=== PATIENT | male | born 1995 | race Caucasian/White ===

== ENCOUNTER 2025-01-15 13:30 | Inpatient (IN) | payer MEDICAID, OTHER ==
--- NOTE | 2025-01-15 14:03 | ED ---
General Adult HPI - General Chief complaint: Psychiatric Symptoms Stated complaint: suicidal ideation Time Seen by Provider: 01/15/25 13:43 Source: patient, family, EMS, RN notes reviewed Mode of arrival: EMS Limitations: no limitations - History of Present Illness Initial comments: Patient is a 29-year-old male present to the emergency department with concerns with depression and suicidal thoughts. Patient has been depressed for many years. Patient has multiple stressors. Patient recently lost his residence and has been sleeping in the car for the last 2 days. Patient has thoughts of self- harm without plan. No homicidal thoughts. No hallucinations. No alcohol or street drug use other than marijuana. Patient has not been sleeping well - Related Data Home Medications Medication Instructions Recorded Confirmed No Known Home Medications 01/15/25 01/15/25 Allergies Allergy/AdvReac Type Severity Reaction Status Date / Time No Known Allergies Allergy Verified 01/15/25 16:12 Review of Systems ROS Statement: Those systems with pertinent positive or pertinent negative responses have been documented in the HPI. ROS Other: All systems not noted in ROS Statement are negative. Constitutional: Denies: fever Eyes: Denies: eye pain ENT: Denies: ear pain Respiratory: Denies: cough Cardiovascular: Denies: chest pain Endocrine: Denies: fatigue Gastrointestinal: Denies: abdominal pain Psychiatric: Reports: as per HPI, anxiety, depression, suicidal thoughts Past Medical History Past Medical History: No Reported History History of Any Multi-Drug Resistant Organisms: None Reported Additional Past Surgical History / Comment(s): rods in left leg in two spots. Past Psychological History: No Psychological Hx Reported Smoking Status: Vaper Past Alcohol Use History: None Reported Past Drug Use History: Marijuana General Exam Limitations: no limitations General appearance: alert, in no apparent distress Head exam: Present: atraumatic Eye exam: Present: normal appearance Neck exam: Present: normal inspection Respiratory exam: Present: normal lung sounds bilaterally Cardiovascular Exam: Present: regular rate, normal rhythm GI/Abdominal exam: Present: soft. Absent: tenderness Extremities exam: Present: normal inspection Neurological exam: Present: alert Psychiatric exam: Present: normal affect, normal mood Skin exam: Present: normal color Course Vital Signs 01/15/25 13:44 Temperature 97.6 F Pulse Rate 85 Respiratory 18 Rate Blood Pressure 135/82 O2 Sat by Pulse 98 Oximetry Medical Decision Making - Medical Decision Making Was pt. sent in by a medical professional or institution (Dr., PA, PATIENT SERVICE REPRESENTATIVE, urgent care, hospital, or [place] [facility] [place] facility...) When possible be specific @ -No Did you speak to anyone other than the patient for history (EMS, parent, family, police, friend...)? What history was obtained from this source @ - is present helps provide history of recently being kicked out of their residence Did you review nursing and triage notes (agree or disagree)? Why? @ -I reviewed and agree with nursing and triage notes Were old charts reviewed (outside hosp., previous admission, EMS record, old EKG, old radiological studies, urgent care reports/EKG's, [place] health care facility records)? Report findings @ -No old charts were reviewed Differential Diagnosis (chest pain, altered mental status, abdominal pain women, abdominal pain men, vaginal bleeding, weakness, fever, dyspnea, syncope, headache, dizziness, GI bleed, back pain, seizure, CVA, palpatations, mental health, musculoskeletal)? @ -Differential Mental Health Depression, anxiety, bipolar, psychosis, schizophrenia, borderline personality, situational depression, adjustment disorder, behavioral disorder, brain tumor, malingering, substance abuse, encephalopathy, medication reaction, dementia, hypothyroidism, degenerative neurologic disorder, lupus.... This is not meant to be all-inclusive list EKG interpreted by me (3pts min.). @ -As above X-rays interpreted by me (1pt min.). @ -None done CT interpreted by me (1pt min.). @ -CT scan of the brain without acute abnormality U/S interpreted by me (1pt. min.). @ -None done What testing was considered but not performed or refused? (CT, X-rays, U/S, labs)? Why? @ -None What meds were considered but not given or refused? Why? @ -None Did you discuss the management of the patient with other professionals (professionals i.e. MARY Rausch, PATIENT SERVICE REPRESENTATIVE, lab, RT, psych nurse, social media campaign manager, medical office receptionist assistant, teacher, chief administrative officer, home health care case manager)? Give summary @ -Case was discussed with mental health social media campaign manager with plans for admission. There was request for CT scan by the psychiatrist Was smoking cessation discussed for >3mins.? @ -No Was critical care preformed (if so, how long)? @ -No Were there social determinants of health that impacted care today? How? (Homelessness, low income, unemployed, alcoholism, drug addiction, transportation, low edu. Level, literacy, decrease access to med. care, residential, rehab)? @ -No Was there de-escalation of care discussed even if they declined (Discuss DNR or withdrawal of care, Hospice)? DNR status @ -No What co-morbidities impacted this encounter? (DM, HTN, Smoking, COPD, CAD, Cancer, CVA, ARF, Chemo, Hep., AIDS, mental health diagnosis, sleep apnea, morbid obesity)? @ -None Was patient admitted / discharged? Hospital course, mention meds given and route, prescriptions, significant lab abnormalities, going to OR and other pertinent info. @ -Patient presents with longstanding depression, worsened recently with suicidal ideation. Patient seen by mental health services with plans for admission. Undiagnosed new problem with uncertain prognosis? @ -No Drug Therapy requiring intensive monitoring for toxicity (Heparin, Nitro, Insulin, Cardizem)? @ -No Were any procedures done? @ -No Diagnosis/symptom? @ -Depression, suicidal ideation Acute, or Chronic, or Acute on Chronic? @ -Acute, acute Uncomplicated (without systemic symptoms) or Complicated (systemic symptoms)? @ -Default Side effects of treatment? @ -No Exacerbation, Progression, or Severe Exacerbation? @ -No Poses a threat to life or bodily function? How? (Chest pain, [place], [place], pneumonia, PE, COPD, DKA, ARF, appy, cholecystitis, CVA, Diverticulitis, Homicidal, Suicidal, threat to staff... and all critical care pts) @ -No - Lab Data Lab Results 01/15/25 Range/Units 15:31 Urine Opiates Screen Not Detected (NotDetected) Ur Oxycodone Screen Not Detected (NotDetected) Urine Methadone Screen Not Detected (NotDetected) Ur Barbiturates Screen Not Detected (NotDetected) U Tricyclic Antidepress Not Detected (NotDetected) Ur Phencyclidine Scrn Not Detected (NotDetected) Ur Amphetamines Screen Not Detected (NotDetected) U Methamphetamines Scrn Not Detected (NotDetected) U Benzodiazepines Scrn Not Detected (NotDetected) Urine Cocaine Screen Not Detected (NotDetected) U Marijuana (THC) Screen Detected H (NotDetected) Disposition Clinical Impression: Depression, Suicidal ideation Disposition: TRANSFER TO PSYCH HOSP/UNIT Is patient prescribed a controlled substance at d/c from ED?: No Referrals: None,Stated [Primary Care Provider] - 1-2 days Time of Disposition: 16:33
[2025-01-15 16:23] LABS: Amphetamine Screen,Urine Not Detected (NotDetected); Barbiturate Screen,Urine Not Detected (NotDetected); Benzodiazepines Screen,Urine Not Detected (NotDetected); Cocaine Screen,Urine Not Detected (NotDetected); Methadone Screen, Urine Not Detected (NotDetected); Opiate Screen,Urine Not Detected (NotDetected); Oxycodone Screen, Urine Not Detected (NotDetected); Phencyclidine Screen,Urine Not Detected (NotDetected); Tricyclic Antidepressant,Urine Not Detected (NotDetected); Urn Cannabinoid Scrn Detected (NotDetected)
--- NOTE | 2025-01-15 16:30 | CT ---
EXAMINATION TYPE: CT brain wo con DATE OF EXAM: 01/15/2025 COMPARISON: None CLINICAL INDICATION: Male, 29 years old with history of new onset psychiatric diagnosis; PHH, new ons et psychiatric diagnosis CT DLP: 1239.4 mGycm Automated exposure control for dose reduction was used. Findings: The ventricles, basal cisterns and sulci over the convexities are within normal limits and there is n o mass effect or shift of midline structures. No abnormal density is seen throughout the brain parenchyma and there is no acute intra or extra-axia l hemorrhage. The posterior fossa including the brainstem, fourth ventricle and cerebellar pontine angles appear no rmal. Intraorbital contents appear normal and symmetric. There is mild chronic pansinusitis. The mastoid air cells are well aerated. The calvarium is intact. IMPRESSION: 1. No acute bleed or mass effect. 2. Mild chronic pansinusitis. [facility], , 01/15/2025 4:27 PM
[2025-01-15] MEDS ORDERED: MAG HYDROX/AL HYDROX/SIMETH 355 ML BOTTLE PO PRN (17:12)
[2025-01-15] MEDS ORDERED: MAGNESIUM HYDROXIDE 2,400 MG/30 ML CUP PO PRN (17:12)
[2025-01-15] MEDS ORDERED: haloperidoL 5 MG TAB PO PRN (17:13)
[2025-01-15] MEDS ORDERED: LORazepam 2 MG/ML INJ IM PRN (17:13)
[2025-01-15] MEDS ORDERED: HALOPERIDOL LACTATE 5 MG/ML 1 ML VIAL IM PRN (17:13)
[2025-01-15] MEDS ORDERED: traZODone HCL 50 MG TAB PO PRN (17:13)
[2025-01-16 04:59] LABS: Appearance,Urine Clear (Clear); Bilirubin,Urine Negative (Negative); Blood,Urine Negative (Negative); Color,Urine Colorless; Glucose,Urine (UA) Negative (Negative); Ketones,Urine Negative (Negative); Leukocyte Esterase,Urine Negative (Negative); Nitrite,Urine Negative (Negative); Protein,Urine Negative (Negative); Specific Gravity,Urine 1.016 (1.001-1.035); Urobilinogen,Urine <2.0 mg/dL (<2.0)
[2025-01-16] MEDS: NICOTINE 14MG/24HR PATCH TRANSDERM SCH (05:11)
[2025-01-16 08:21] LABS: Basophils # (A) 0.06 10*3/uL (0.00-0.10); Basophils % (A) 0.6 %; Eosinophils # (A) 0.26 10*3/uL (0.04-0.35); Eosinophils % (A) 2.4 %; HGB 16.9 g/dL (13.0-17.0); Lymphocytes # (A) 2.31 10*3/uL (0.90-5.00); Lymphocytes % (A) 21.5 %; MCH 28.9 pg (27.0-32.0); MCHC 32.5 g/dL (32.0-37.0); Mean Platelet Volume 11.1 fL (9.5-12.2); Monocytes % (A) 7.5 %; Neutrophils # (A) 7.25 10*3/uL (1.80-7.70); Neutrophils % (A) 67.6 %; Platelet Count 349 10*3/uL (140-440); RBC 5.84 10*6/uL (4.40-5.60); RDW 13.5 % (11.5-14.5); WBC 10.72 10*3/uL (4.50-10.00)
[2025-01-16 08:54] LABS: ALT 34 U/L (4-49); AST 25 U/L (17-59); African American GFR (CKD) >90 (>60 ml/min/1.73 sqM); Albumin 4.7 g/dL (3.5-5.0); Alkaline Phosphatase 87 U/L (38-126); Anion Gap 9 mmol/L; Blood Urea Nitrogen 11 mg/dL (9-20); Calcium 10.4 mg/dL (8.4-10.2); Carbon Dioxide 30 mmol/L (22-30); Chloride 103 mmol/L (98-107); Glucose 123 mg/dL (74-99); Non-African American GFR(CKD) >90 (>60 ml/min/1.73 sqM); Potassium 5.1 mmol/L (3.5-5.1); Sodium 142 mmol/L (137-145); Total Bilirubin 0.9 mg/dL (0.2-1.3); Total Protein 8.1 g/dL (6.3-8.2)
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
[2025-01-16] MEDS: ARIPiprazole 10 MG TAB PO SCH (16:12)
--- NOTE | 2025-01-16 21:43 | P.MDCNMH ---
<Jayden Mijares - Last Filed: 01/16/25 21:43> History of Present Illness H&P Date: 01/15/25 Patient is a 29year old male with no significant past medical history, admitted to the hospital for depression and suicidal ideation, seen today in medical consultation for medical management. Patient initially presented to the ED with concerns of depression suicidal thoughts. The patient has been depressed for many years and has multiple stressors. He also recently lost his residence and had been sleeping in the car for couple of days. He had thoughts of self-harm without a plan. Patient is being treated with Haldol, Ativan, Desyrel. Patient reports having palpitations intermittently. Denies being diagnosed with any arrhythmias. Denies associated symptoms of chest pain, dizziness, nausea. Patient denies taking any medications at home for any medical conditions. At the time of this interview patient denies fever, chills, shortness of breath, cough, chest pain, palpitations, abdominal pain, nausea, vomiting, hematuria, dysuria, hematochezia, melena, headache, slurred speech, numbness, tingling, dizziness, lightheadedness, blurred vision, double vision. He does mention that he needs to start taking better care of himself. Vitals T 97.6 F, OR 92 bpm, RR 18, BP 149/92, oxygen saturation 98 % on room air Brain CT shows no acute bleed or mass effect, mild chronic pansinusitis Urine toxicology positive for THC SARS-CoV-2 is negative Review of systems: Pertinent positives and negatives as discussed in HPI, a complete review of systems was performed and all other systems are negative. Physical examination: Vital signs reviewed General: nontoxic, no distress, appears at stated age Derm: warm, dry, intact Head: atraumatic, normocephalic, symmetric Cardiovascular: S1 S2 reg, no murmur Lungs: CTA bilateral, no rhonchi, no rales, no accessory muscle use Abdominal: soft, non-tender to palpation Extremities: No cyanosis, clubbing, or pedal edema. Neuro: Alert, Oriented, Gross neurological examination did not reveal any focal deficits. Assessment/Plan: Patient is a 29year old male with no significant past medical history, admitted to the hospital for depression and suicidal ideation, seen today in medical consultation for medical management. #. Nicotine dependence Continue Nicotine patch #. Constipation Continue Milk of magnesia #. GI upset Continue Maalox 30 ml PO Q4HR PRN #. Depression #. Suicidal ideation Patient receiving Haldol, Ativan, Desyrel per primary admitting team Continue Acetaminophen PRN and Ibuprofen PRN for pain management. Monitor vital signs Monitor CBC Monitor CMP Dictation was produced using [employer] dictation software. please excuse any grammatical, word or spelling errors. Jayden Mijares MD PGY-1 IM Past Medical History Past Medical History: No Reported History History of Any Multi-Drug Resistant Organisms: None Reported Additional Past Surgical History / Comment(s): rods in left leg in two spots. Past Anesthesia/Blood Transfusion Reactions: No Reported Reaction Past Psychological History: No Psychological Hx Reported Smoking Status: Vaper Past Alcohol Use History: None Reported Past Drug Use History: Marijuana Medications and Allergies Home Medications Medication Instructions Recorded Confirmed Type No Known Home Medications 01/15/25 01/15/25 History Allergies Allergy/AdvReac Type Severity Reaction Status Date / Time No Known Allergies Allergy Verified 01/15/25 16:12 Physical Exam Vitals: Vital Signs Temp Pulse Pulse Resp BP BP Pulse Ox 01/15/25 18:55 97.6 F 92 18 149/92 98 01/15/25 13:44 97.6 F 85 18 135/82 98 Intake and Output 01/15/25 01/15/25 01/15/25 06:59 14:59 22:59 Other: Weight 131.542 kg 135.7 kg Cranial Nerve Examination - Cranial Nerves Cranial Nerve I- Olfactory: Intact Cranial Nerve II- Optic: Intact Cranial Nerve III- Oculomotor: Intact Cranial Nerve IV- Trochlear: Intact Cranial Nerve V- Trigeminal: Intact Cranial Nerve - Abducens: Intact Cranial Nerve VII- Facial: Intact Cranial Nerve VIII- Auditory: Intact Cranial Nerve IX- Glossopharyngeal: Intact Cranial Nerve X- Vagus: Intact Cranial Nerve XI- Accessory: Intact Cranial Nerve XII- Hypoglossal: Intact Results CBC & Chem 7: 01/16/25 07:54 01/16/25 07:54 Labs: Abnormal Lab Results - Last 24 Hours (Table) 01/15/25 Range/Units 15:31 U Marijuana (THC) Screen Detected H (NotDetected) <Renee Vidal - Last Filed: 01/18/25 06:25> History of Present Illness I Discussed the case with the resident and agree with the resident's findings I edited the assessment and plan as necessary as documented in the resident's note. Physical Exam Vitals: Vital Signs Temp Pulse BP Pulse Ox 01/17/25 09:00 97.6 F 139 H 138/89 98 Cranial Nerve Examination - Cranial Nerves Cranial Nerve II- Optic: Intact Cranial Nerve III- Oculomotor: Intact Cranial Nerve IV- Trochlear: Intact Cranial Nerve V- Trigeminal: Intact Cranial Nerve - Abducens: Intact Cranial Nerve VII- Facial: Intact Cranial Nerve VIII- Auditory: Intact Cranial Nerve IX- Glossopharyngeal: Intact Cranial Nerve X- Vagus: Intact Cranial Nerve XI- Accessory: Intact Cranial Nerve XII- Hypoglossal: Intact Results CBC & Chem 7: 01/16/25 07:54 01/16/25 07:54
--- NOTE | 2025-01-17 12:07 | P.PN ---
Progress Note - Text Progress Note Date: 01/17/25 Interval History: Patient was seen wandering the hallways and was directable and agreeable to sp leeleek with auto service writer in the room. Patient reports being fearful due to the acuity of the unit, requesting to be discharged. He was redirectable, stated he slept "too good" and that he spoke to his who plans on visiting him over the weekend. Patient continues to be dramatic, some mood lability and continues to express some delusions described as sex traffickers targeting him however they have been locked up but this has been ongoing for 8 years. He inquired if auto service writer looked into UA given his previous O experience. At this time patient denies any suicidal or homicidal ideations, intent or plan. Patient denies any auditory, visual hallucinations. Patient denies any side effects from the medications and has been compliant with meds. Mental Status Exam: General Appearance: Patient appears to be stated age is alert, directable, and cooperative. He is overweight Behavior: Patient is calmly seated without any agitated behavior. Dramatic behavior at times Speech: Patient's speech is fluent and nonpressured. Mood/Affect: Mood is improving mildly, affect is congruent and labile. Suicidality/Homicidality: Patient denies having any suicidal or homicidal ideation intent or plan. Perceptions: Patient denies any visual hallucinations and denies any auditory hallucinations Though content/process: There is evidence of delusions, disorganization has improved Memory and concentration: AOX3, grossly intact for the purposes of this session Judgment and insight: Improving mildly Assessment Schizophrenia Adjustment disorder with depressed mood Cannabis use disorder History of polysubstance use disorder Rule out cluster A traits Plan: -Patient continues to meet criteria for inpatient psychiatric admission for symptom stabilization and safety. Patient has signed adult voluntary form and medication consent and was placed in patient's chart. -Medications: Increase Abilify to 15 mg daily tomorrow for psychosis -When necessary Ativan and Haldol for agitation/aggression. -Labs: A1c, lipid panel, TSH WNL -SW on board for discharge planning. Encouraged the patient to participate in milieu.
[2025-01-18] MEDS: ARIPiprazole 15 MG TAB PO SCH (11:04)
--- NOTE | 2025-01-18 11:23 | P.PN ---
Subjective Progress Note Date: 01/18/25 Principal diagnosis: Schizophrenia Patient was seen wandering the hallways and was directable and agreeable to speak with underwriter solicitation director in the room. Patient reports being fearful due to the acuity of the unit. He was redirectable, stated he slept "too good". Patient continues to be dramatic, some mood lability and continues to express some delusions described seeing UFO s and predicting the the government would say. He inquired if underwriter solicitation director looked into UA given his previous UFO experience. At this time patient denies any suicidal or homicidal ideations, intent or plan. Patient denies any auditory, visual hallucinations. Patient denies any side effects from the medications and has been compliant with meds. Mental Status Exam:"I might have delusions but I don't act on them. His social boundaries are poor and stands much too close but is not threatening. General Appearance: Patient appears to be stated age is alert, directable, and cooperative. He is overweight Behavior: Patient is calmly seated without any agitated behavior. Dramatic behavior at times Speech: Patient's speech is fluent but pressured with some flight of ideas. Mood/Affect: Mood is improving mildly, affect is congruent and labile. Suicidality/Homicidality: Patient denies having any suicidal or homicidal ideation intent or plan. Perceptions: Patient denies any visual hallucinations and denies any auditory hallucinations Though content/process: There is evidence of delusions, disorganization has improved Memory and concentration: AOX3, grossly intact for the purposes of this session Judgment and insight: Improving mildly Assessment Schizophrenia Adjustment disorder with depressed mood Cannabis use disorder History of polysubstance use disorder Rule out cluster A traits Plan:We just increased his Abilify so need to give it some time to kick in. -Patient continues to meet criteria for inpatient psychiatric admission for symptom stabilization and safety. Patient has signed adult voluntary form and medication consent and was placed in patient's chart. -Medications: Increase Abilify to 15 mg daily tomorrow for psychosis -When necessary Ativan and Haldol for agitation/aggression. -Labs: A1c, lipid panel, TSH WNL -SW on board for discharge planning. Encouraged the patient to participate in milieu. Objective - Vital Signs Vital signs: Vital Signs Temp 97.6 F 01/17/25 09:00 Pulse 139 H 01/17/25 09:00 Resp 18 01/16/25 09:00 BP 138/89 01/17/25 09:00 Pulse Ox 98 01/17/25 09:00 FiO2 - Labs CBC & Chem 7: 01/16/25 07:54 01/16/25 07:54
--- NOTE | 2025-01-19 12:37 | P.PN ---
Subjective Progress Note Date: 01/19/25 Principal diagnosis: Schizophrenia Patient was taking a nap but was willing to speak with headline writer in the room. Patient says he is not anxious today he was redirectable, stated he slept "too good". Patient continues to be dramatic he sat up in was willing to talk with slight pressure and rambling. At this time patient denies any suicidal or homicidal ideations, intent or plan. Patient denies any auditory, visual hallucinations. Patient denies any side effects from the medications and has been compliant with meds. Mental Status Exam: The patient is disheveled with minimal self-care General Appearance: Patient appears to be stated age is alert, directable, and cooperative. He is overweight Behavior: Patient is calmly seated without any agitated behavior. Dramatic beh avior at times Speech: Patient's speech is fluent but pressured with some flight of ideas. Mood/Affect: Mood is improving mildly, affect is congruent and labile. Suicidality/Homicidality: Patient denies having any suicidal or homicidal ideation intent or plan. Perceptions: Patient denies any visual hallucinations and denies any auditory hallucinations Though content/process: There is evidence of delusions, disorganization has improved Memory and concentration: AOX3, grossly intact for the purposes of this session Judgment and insight: Improving mildly Assessment his thinking is still pretty loose Schizophrenia Adjustment disorder with depressed mood Cannabis use disorder History of polysubstance use disorder Rule out cluster A traits Plan:We just increased his Abilify so need to give it some time to kick in. -Patient continues to meet criteria for inpatient psychiatric admission for symptom stabilization and safety. Patient has signed adult voluntary form and medication consent and was placed in patient's chart. -Medications: Increase Abilify to 15 mg daily tomorrow for psychosis -When necessary Ativan and Haldol for agitation/aggression. -Labs: A1c, lipid panel, TSH WNL -SW on board for discharge planning. Encouraged the patient to participate in milieu. Objective - Vital Signs Vital signs: Vital Signs Temp 98.2 F 01/19/25 09:00 Pulse 93 01/19/25 09:00 Resp 16 01/19/25 09:00 BP 125/86 01/19/25 09:00 Pulse Ox 100 01/19/25 09:00 FiO2 Intake & Output 01/18/25 01/19/25 01/19/25 18:59 06:59 18:59 Weight 132.5 kg - Labs CBC & Chem 7: 01/16/25 07:54 01/16/25 07:54
[2025-01-20] MEDS: ACETAMINOPHEN TAB 325 MG TAB PO PRN (03:56)
[2025-01-20] MEDS: LORazepam 1 MG TAB PO PRN (08:27)
[2025-01-20] MEDS: ARIPiprazole 5 MG TAB PO ONE (10:23)
--- NOTE | 2025-01-20 13:20 | P.PN ---
Progress Note - Text Progress Note Date: 01/20/25 Interval History: Patient was seen wandering the hallways and was directable and agreeable to carl doran with procedure writer in the office. Patient was fixated on being discharged due to the environment being triggering for him. Patient did appear to be less fixated on delusions, more goal oriented today however did display poor hygiene and grooming. Patient was agreeable with procedure writer speaking to his [employer] for collateral to which she states having concerns with patient returning home with his father as this was part of the trigger that ultimately led him here in the hospital. When asked about patient's mental health concerns, she states patient did appear irritable with her and is focusing on his family instead of himself which is concerning for her. She states she is trying to find an alternative place within the stay as they have been homeless and she does not wish to live with patient's father. Discussed with patient to which he states his father has a safe place for him to return to, states that his has concerns however he expressed none. He was adamant that he will follow-up with his outpatient appointments and take his meds as prescribed. At this time patient denies any suicidal or homicidal ideations, intent or plan. Patient denies any auditory, visual hallucinations and denies any paranoia or delusions. Patient denies any side effects from the medications and has been compliant with meds. Mental Status Exam: General Appearance: Patient appears to be stated age is alert, directable, and cooperative. He has poor grooming and hygiene Behavior: Patient is calmly seated without any agitated behavior. Speech: Patient's speech is fluent and nonpressured. Mood/Affect: Mood is improving mildly, affect is congruent and constricted. Suicidality/Homicidality: Patient denies having any suicidal or homicidal ideation intent or plan. Perceptions: Patient denies any visual hallucinations and denies any auditory hallucinations Though content/process: There is no evidence of any overt delusional thought content and thought process is linear and goal-directed. Disorganization is minimal Memory and concentration: AOX3, grossly intact for the purposes of this session Judgment and insight: Improving mildly Assessment Schizophrenia Adjustment disorder with depressed mood Cannabis use disorder History of polysubstance use disorder Plan: -Patient continues to meet criteria for inpatient psychiatric admission for symptom stabilization and safety. Patient has signed adult voluntary form and medication consent and was placed in patient's chart. -Medications: Increase Abilify to 20 mg daily today for psychosis -When necessary Ativan and Haldol for agitation/aggression. -Labs: TSH, lipid panel and A1c all WNL -SW on board for discharge planning. Encouraged the patient to participate in milieu. Anticipate discharge tomorrow, patient to return with his father
[2025-01-20] MEDS: IBUPROFEN 600 MG TAB PO PRN (17:30)
[2025-01-21 08:18] VITALS: BP 128/78; PULSE 77; RESP 18; TEMP 96.1
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
== END 2025-01-21 12:58 | disposition home or self-care (01) | DRG 750 ==
LOC: EC 13:30 → 3MHU 17:10
PROVIDERS: ADMIT Psychiatry & Neurology Psychiatry; ATTEND Psychiatry & Neurology Psychiatry
DX: F20.9 Schizophrenia, unspecified (principal); F41.9 Anxiety disorder, unspecified; F43.21 Adjustment disorder with depressed mood; G89.29 Other chronic pain; K59.00 Constipation, unspecified; R45.851 Suicidal ideations; F17.290 Nicotine dependence, other tobacco product, uncomplicated; F19.11 Other psychoactive substance abuse, in remission; F12.10 Cannabis abuse, uncomplicated; Z71.51 Drug abuse counseling and surveillance of drug abuser; Z71.89 Other specified counseling; Z59.02 Unsheltered homelessness; Z79.899 Other long term (current) drug therapy; Z87.828 Personal history of other (healed) physical injury and trauma; Z91.52 Personal history of nonsuicidal self-harm
CPT/HCPCS: 70450; 80053; 80306; 81003; 82075; 83036; 84443; 85025; 87635; 99285

== ENCOUNTER 2025-04-03 15:45 | Inpatient (IN) | payer MEDICAID, OTHER ==
--- NOTE | 2025-04-03 17:08 | ED ---
Psych HPI - General Chief Complaint: Psychiatric Symptoms Stated Complaint: Mental Health Eval Time Seen by Provider: 04/03/25 16:02 Source: patient, family, RN notes reviewed Mode of arrival: ambulatory Limitations: no limitations - History of Present Illness Initial Comments: This is a calm and cooperative 30-year-old male presenting for SI x 6 months. Patient denies current plan or HI. Endorses hearing "dad calling him names" this morning and occasional random screams but denies visual hallucinations. States he lives with his father but is hearing the voice in his head. Patient states he is taking his psychiatric medication as prescribed. Patient states he has a [facility] sports attorney and states he is not attending therapy at this time. States symptoms have worsened today. Endorses being admitted due to mental health in December 2024. Patient will be self admitted MD Complaint: suicidal ideation Onset/Timin -: month(s) Associated Psychiatric Symptoms: depression, suicidal ideation, auditory hallucinations History of same: Yes Quality: constant, getting worse Associated Symptoms: denies other symptoms Treatments Prior to Arrival: none If Self Harm: admits thoughts of self harm - Related Data Home Medications Medication Instructions Recorded Confirmed Cariprazine HCl [Vraylar] 1.5 mg PO DAILY 04/03/25 04/03/25 Levomefolate Calcium 15 mg PO DAILY 04/03/25 04/03/25 [l-Methylfolate Calcium] Allergies Allergy/AdvReac Type Severity Reaction Status Date / Time No Known Allergies Allergy Verified 04/03/25 17:49 Review of Systems ROS Statement: Those systems with pertinent positive or pertinent negative responses have been documented in the HPI. ROS Other: All systems not noted in ROS Statement are negative. Past Medical History Past Medical History: No Reported History History of Any Multi-Drug Resistant Organisms: None Reported Additional Past Surgical History / Comment(s): rods in left leg in two spots. Past Anesthesia/Blood Transfusion Reactions: No Reported Reaction Past Psychological History: No Psychological Hx Reported Smoking Status: Vaper Past Alcohol Use History: None Reported Past Drug Use History: Marijuana General Exam Limitations: no limitations General appearance: alert, in no apparent distress Head exam: Present: atraumatic, normocephalic, normal inspection Eye exam: Present: normal appearance, PERRL, EOMI. Absent: scleral icterus, conjunctival injection, periorbital swelling ENT exam: Present: normal exam, mucous membranes moist Neck exam: Present: normal inspection. Absent: tenderness, meningismus, lymphadenopathy Respiratory exam: Present: normal lung sounds bilaterally. Absent: respiratory distress, wheezes, rales, rhonchi, stridor, accessory muscle use, decreased breath sounds, prolonged expiratory Cardiovascular Exam: Present: regular rate, normal rhythm, normal heart sounds. Absent: systolic murmur, diastolic murmur, rubs, gallop, clicks GI/Abdominal exam: Present: soft, normal bowel sounds. Absent: distended, tenderness, guarding, rebound, rigid Extremities exam: Present: normal inspection, full ROM, normal capillary refill. Absent: tenderness, pedal edema, joint swelling, calf tenderness Back exam: Present: normal inspection Neurological exam: Present: alert, oriented X3, CN II-XII intact Psychiatric exam: Present: normal affect, normal mood, suicidal ideation. Absent: agitated, anxious, manic, homicidal ideation Skin exam: Present: warm, dry, intact, normal color. Absent: rash Course Vital Signs 04/03/25 04/03/25 15:48 19:04 Temperature 97.7 F Pulse Rate 84 72 Respiratory 18 18 Rate Blood Pressure 132/84 133/79 O2 Sat by Pulse 95 96 Oximetry Medical Decision Making - Medical Decision Making Was pt. sent in by a medical professional or institution (, PA, FINANCIAL ANALYST ACCOUNTANT, urgent care, hospital, or skilled nursing...) When possible be specific @ -No Did you speak to anyone other than the patient for history (EMS, parent, family, police, friend...)? What history was obtained from this source @ -No Did you review nursing and triage notes (agree or disagree)? Why? @ -I reviewed and agree with nursing and triage notes Were old charts reviewed (outside hosp., previous admission, EMS record, old EKG, old radiological studies, urgent care reports/EKG's, skilled nursing records)? Report findings @ -No old charts were reviewed Differential Diagnosis (chest pain, altered mental status, abdominal pain women, abdominal pain men, vaginal bleeding, weakness, fever, dyspnea, syncope, headache, dizziness, GI bleed, back pain, seizure, CVA, palpatations, mental health, musculoskeletal)? @ -Differential Mental Health Depression, anxiety, bipolar, psychosis, schizophrenia, borderline personality, situational depression, adjustment disorder, behavioral disorder, brain tumor, malingering, substance abuse, encephalopathy, medication reaction, dementia, hypothyroidism, degenerative neurologic disorder, lupus.... This is not meant to be all-inclusive list EKG interpreted by me (3pts min.). @ -Not done X-rays interpreted by me (1pt min.). @ -None done CT interpreted by me (1pt min.). @ -None done U/S interpreted by me (1pt. min.). @ -None done What testing was considered but not performed or refused? (CT, X-rays, U/S, labs)? Why? @ -None What meds were considered but not given or refused? Why? @ -None Did you discuss the management of the patient with other professionals (professionals i.e. , PA, FINANCIAL ANALYST ACCOUNTANT, lab, RT, psych nurse, clinical social work therapist, trial lawyer, teacher, senior grants officer, caser)? Give summary @ -No Was smoking cessation discussed for >3mins.? @ -No Was critical care preformed (if so, how long)? @ -No Were there social determinants of health that impacted care today? How? (Homel essness, low income, unemployed, alcoholism, drug addiction, transportation, low edu. Level, literacy, decrease access to med. care, longterm, rehab)? @ -No Was there de-escalation of care discussed even if they declined (Discuss DNR or withdrawal of care, Hospice)? DNR status @ -No What co-morbidities impacted this encounter? (DM, HTN, Smoking, COPD, CAD, Cancer, CVA, ARF, Chemo, Hep., AIDS, mental health diagnosis, sleep apnea, morbid obesity)? @ -None Was patient admitted / discharged? Hospital course, mention meds given and route, prescriptions, significant lab abnormalities, going to OR and other pertinent info. @ -Urine drug screen collected at time of admission patient will be self admitted for inpatient psychological evaluation. Discussed patient with Dr. Major. Undiagnosed new problem with uncertain prognosis? @ -No Drug Therapy requiring intensive monitoring for toxicity (Heparin, Nitro, Insulin, Cardizem)? @ -No Were any procedures done? @ -No Diagnosis/symptom? @ -Suicidal ideation Acute, or Chronic, or Acute on Chronic? @ -Acute Uncomplicated (without systemic symptoms) or Complicated (systemic symptoms)? @ -Uncomplicated Side effects of treatment? @ -No Exacerbation, Progression, or Severe Exacerbation? @ -No Poses a threat to life or bodily function? How? (Chest pain, [place], [place], pneumonia, PE, COPD, DKA, ARF, appy, cholecystitis, CVA, Diverticulitis, Homicidal, Suicidal, threat to staff... and all critical care pts) @ -Suicidal ideation - Lab Data Lab Results 04/03/25 Range/Units 20:21 SARS-CoV-2 (PCR) Not Detected (Not Detectd) Disposition Clinical Impression: Suicidal ideation Disposition: ADMITTED IP TO THIS [facility] Condition: Fair Time of Disposition: 19:57 Decision Date: 04/03/25 Decision Time: 19:57
[2025-04-03] MEDS ORDERED: MAG HYDROX/AL HYDROX/SIMETH 355 ML BOTTLE PO PRN (21:40)
[2025-04-03] MEDS ORDERED: LORazepam 1 MG/0.5 ML VIAL IM PRN (21:40)
[2025-04-03] MEDS ORDERED: HALOPERIDOL LACTATE 5 MG/ML 1 ML VIAL IM PRN (21:40)
[2025-04-03] MEDS ORDERED: ACETAMINOPHEN TAB 325 MG TAB PO PRN (21:40)
[2025-04-03] MEDS ORDERED: IBUPROFEN 600 MG TAB PO PRN (21:40)
[2025-04-03] MEDS ORDERED: MAGNESIUM HYDROXIDE 2,400 MG/30 ML CUP PO PRN (21:40)
[2025-04-04] MEDS: NICOTINE 14MG/24HR PATCH TRANSDERM SCH (08:36)
[2025-04-04] MEDS ORDERED: NICOTINE GUM (POLACRILEX) 2 MG GUM BUCCAL PRN (08:50)
[2025-04-04] MEDS: NON FORMULARY DRUG (Cariprazine Hcl [Vraylar] 1.5 MG Capsule) PO SCH (08:50)
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
[2025-04-04 09:32] LABS: Urine Alcohol Negative (Negative)
[2025-04-04 09:33] LABS: Urine Barbiturate Negative (Negative)
[2025-04-04 12:45] LABS: Basophils # (A) 0.05 10*3/uL (0.00-0.10); Basophils % (A) 0.5 %; Eosinophils # (A) 0.13 10*3/uL (0.04-0.35); Eosinophils % (A) 1.4 %; HCT 47.7 % (39.6-50.0); HGB 16.1 g/dL (13.0-17.0); Lymphocytes # (A) 2.10 10*3/uL (0.90-5.00); Lymphocytes % (A) 22.3 %; MCH 29.9 pg (27.0-32.0); MCHC 33.8 g/dL (32.0-37.0); MCV 88.7 fL (80.0-97.0); Monocytes # (A) 0.94 10*3/uL (0.20-1.00); Monocytes % (A) 10.0 %; Neutrophils # (A) 6.18 10*3/uL (1.80-7.70); Neutrophils % (A) 65.6 %; Platelet Count 299 10*3/uL (140-440); RBC 5.38 10*6/uL (4.40-5.60); RDW 13.1 % (11.5-14.5); WBC 9.42 10*3/uL (4.50-10.00)
[2025-04-04 12:51] LABS: ALT 33 U/L (4-49); AST 21 U/L (17-59); African American GFR (CKD) >90 (>60 ml/min/1.73 sqM); Albumin 4.7 g/dL (3.5-5.0); Alkaline Phosphatase 80 U/L (38-126); Anion Gap 11 mmol/L; Blood Urea Nitrogen 11 mg/dL (9-20); Calcium 10.0 mg/dL (8.4-10.2); Carbon Dioxide 26 mmol/L (22-30); Chloride 107 mmol/L (98-107); Glucose 98 mg/dL (74-99); Non-African American GFR(CKD) >90 (>60 ml/min/1.73 sqM); Potassium 4.8 mmol/L (3.5-5.1); Sodium 144 mmol/L (137-145); Total Protein 7.7 g/dL (6.3-8.2)
[2025-04-04] MEDS: hydrOXYzine HCL 25 MG TAB PO PRN (16:55)
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
[2025-04-05 05:46] LABS: Cholesterol 249.00 mg/dL (0.00-200.00); HDL Cholesterol 29.10 mg/dL (40.00-60.00); LDL Cholesterol,Calculated 196.1 mg/dL (0.0-131.0); Triglycerides 119.00 mg/dL (0.00-149.00); VLDL Calculation 23.80 mg/dL (5.00-40.00)
--- NOTE | 2025-04-05 14:23 | P.PN ---
Progress Note - Text Progress Note Date: 04/05/25 Chief complaint: Suicidal thoughts Interval History: Patient was seen in his room and easily awake able and was directable and agreeable to speak with commercial underwriter in the office. The Patient notes that he is making some progress. He feels the hydroxyzine has really helped with his anxiety. He notes no suicidal thoughts or auditory hallucinations. He describes his depression as mild and his anxiety nonexistent. He does note that he is struggling with sleep. He denies any mood swings or racing thoughts. He notes that energy is low. He denies any problems with appetite or concentration. He notes that he has not been able to connect with his as of yet. He would like some help with sleep. Mental Status Exam: General Appearance: Patient appears to be stated age is alert, directable, and cooperative. Behavior: Patient is calmly seated without any agitated behavior. Speech: Patient's speech is fluent and nonpressured. Mood/Affect: Mood is improving mildly, affect is congruent and constricted. Suicidality/Homicidality: Patient denies having any suicidal or homicidal ideation intent or plan. Perceptions: Patient denies any visual hallucinations and denies any auditory hallucinations Though content/process: There is no evidence of any delusional thought content and thought process is linear and goal-directed. Memory and concentration: AOX3, grossly intact for the purposes of this session Judgment and insight: Improving mildly Diagnosis: Schizoaffective disorder bipolar type Unspecified anxiety disorder R/O Borderline personality Cannabis use disorder Assessment: The patient is making rapid progress whether this is due to a change of a toxic environment or medications is unknown yet. It is felt that at this point we need to observe for a little longer prior to discharge but anticipation is early next week. PLAN: -Patient is admitted under voluntary status to MHU for stabilization of psychiatric symptoms and safety. Patient has signed adult voluntary form and medication consent and is placed in patient's chart. -Medications : Continue Vraylar 1.5 mg take 1 tablet by mouth once daily for mood/psychosis Hydroxyzine 25 mg 4 times daily as needed for anxiety Start Trazodone 50 mg take 1 tablet by mouth at bedtime as needed for insomnia -Ativan and Haldol PRN for agitation/aggression -Patient was counselled on substance abuse and desired to cut back on use-Will offer patient subtance use rehab -Patient was informed of the risks, benefits and side effects of the medication and patient verbally consented to taking the medications. Patient signed med consent form and was placed in chart. -Internal Medicine consult to perform medical evaluation and physical. -NRT -nicotine patch -SW on board for discharge planning. Encourage patient to participate in groups to work on coping skills.
--- NOTE | 2025-04-06 09:56 | P.PN ---
Progress Note - Text Progress Note Date: 04/06/25 Chief complaint: Suicidal thoughts Interval History: Patient was seen in his room and easily awake able and was directable and agreeable to speak with comic book writer in the office. The addition of the Trazodone has helped the patient's sleep with no side effects. Additionally, with the hydroxyzine the patient's anxiety level is minimal. He denies any auditory or visual hallucinations. He notes that he is not having mood swings or racing thoughts. He denies any suicidal thoughts. He notes that his depression is mild and his anxiety is 0. He notes that his sleep, energy, appetite and concentration are normal. He did express that he will be staying with his father if he is unable to reach his and arrange something. Collateral: During the patient's interview we did try to communicate with the patient's Diamond [phone]. We called twice to try to arrange a conference call but failed. The patient currently is unable to get in contact with her and feels that he is going to have to go back to his father's house. Mental Status Exam: General Appearance: Patient appears to be stated age is alert, directable, and cooperative. Behavior: Patient is calmly seated without any agitated behavior. Speech: Patient's speech is fluent and nonpressured. Mood/Affect: Mood is improving mildly, affect is congruent and constricted. Suicidality/Homicidality: Patient denies having any suicidal or homicidal ideation intent or plan. Perceptions: Patient denies any visual hallucinations and denies any auditory hallucinations Though content/process: There is no evidence of any delusional thought content and thought process is linear and goal-directed. Memory and concentration: AOX3, grossly intact for the purposes of this session Judgment and insight: Improving mildly Diagnosis: Schizoaffective disorder bipolar type Unspecified anxiety disorder R/O Borderline personality Cannabis use disorder Assessment: The patient is fairly stabilized at this time indicating possible discharge on Monday or Monday this coming week. There is still question about housing and whether he is going back to his father's house which is toxic. PLAN: -Patient is admitted under voluntary status to MHU for stabilization of psychiatric symptoms and safety. Patient has signed adult voluntary form and medication consent and is placed in patient's chart. -Medications : Continue Vraylar 1.5 mg take 1 tablet by mouth once daily for mood/psychosis Hydroxyzine 25 mg 4 times daily as needed for anxiety Trazodone 50 mg take 1 tablet by mouth at bedtime as needed for insomnia -Ativan and Haldol PRN for agitation/aggression -Patient was counselled on substance abuse and desired to cut back on use-Will offer patient subtance use rehab -Patient was informed of the risks, benefits and side effects of the medication and patient verbally consented to taking the medications. Patient signed med consent form and was placed in chart. -Internal Medicine consult to perform medical evaluation and physical. -NRT -nicotine patch -SW on board for discharge planning. Encourage patient to participate in groups to work on coping skills.
[2025-04-06] MEDS: LORazepam 1 MG TAB PO PRN (15:31)
--- NOTE | 2025-04-07 11:36 | P.PN ---
Progress Note - Text Progress Note Date: 04/07/25 Interval History: Patient was seen lying in bed easily awake able and was directable and agreeable to speak with advertising writer in the office. Patient notes that he does not have any side effects with the medications that we started. He notes that his depression is low and his anxiety is nonexistent. He notes that he was struggling sleeping last night tossing and turning thinking about going to his father's house. He notes no problems with energy, appetite or concentration. He denies any suicid al or homicidal ideations. He denies any auditory or visual hallucinations. He notes that he is feeling somewhat betrayed because his will not answer his calls. He plans to go back to [facility] upon discharge. He notes that he has the Vraylar at home and just refilled it. Collateral: During the patient's interview we did try to communicate with the patient's Diamond [phone]. We called twice to try to arrange a conference call but failed. The patient currently is unable to get in contact with her and feels that he is going to have to go back to his father's house. The patient notes that he is feeling somewhat betrayed. Mental Status Exam: General Appearance: Patient appears to be stated age is alert, slightly disheveled and obese patient's gait was within normal limits Behavior: Patient was calm but seemed concerned Speech: Patient's speech is fluent and nonpressured. Mood/Affect: Mood is improving mildly, affect is congruent and constricted. Suicidality/Homicidality: Patient denies having any suicidal or homicidal ideation intent or plan. Perceptions: Patient denies any visual hallucinations and denies any auditory hallucinations Though content/process: There is no evidence of any delusional thought content and thought process is linear and goal-directed. Memory and concentration: AOX3, grossly intact for the purposes of this session Judgment and insight: Improving mildly Diagnosis: Schizoaffective disorder bipolar type Unspecified anxiety disorder R/O Borderline personality Cannabis use disorder Assessment: At this point we are completing stabilization anticipated discharge tomorrow. The patient will return to his father's house unless he is able to contact his who appears to be not answering the phone. PLAN: -Patient is admitted under voluntary status to MHU for stabilization of psychiatric symptoms and safety. Patient has signed adult voluntary form and medication consent and is placed in patient's chart. -Medications : Continue Vraylar 1.5 mg take 1 tablet by mouth once daily for mood/psychosis Hydroxyzine 25 mg 4 times daily as needed for anxiety Trazodone 50 mg take 1 tablet by mouth at bedtime as needed for insomnia -Ativan and Haldol PRN for agitation/aggression -Patient was counselled on substance abuse and de The patient is currently feeling somewhat betrayedsired to cut back on use-Will offer patient subtance use rehab -Patient was informed of the risks, benefits and side effects of the medication and patient verbally consented to taking the medications. Patient signed med consent form and was placed in chart. -Internal Medicine consult to perform medical evaluation and physical. -NRT -nicotine patch -SW on board for discharge planning. Encourage patient to participate in groups to work on coping skills.
[2025-04-07 21:50] VITALS: RESP 16
[2025-04-08 09:07] VITALS: BP 113/83; PULSE 118; TEMP 97.6
--- NOTE | 2025-04-08 11:57 | P.DS ---
Providers Date of admission: 04/03/25 21:30 Admission HPI: Admission note was completed by Dr. Marshall "The patient presented to the hospital requesting admission due to suicidal thoughts. However, upon meeting the patient he notes that he is in need of respite and was self harming himself at home including banging his head against the wall. He notes that his left to stay with her sister yesterday and he cannot take being around his father and brother anymore. He notes that he has auditory hallucinations of his father calling him a loser. He notes that his brother thinks he is Cary musk and has a neuro link implanted in his head. He notes that his depression is severe as well as his anxiety. He notes that he is not sleeping and having mood swings as well as racing thoughts. He feels that his energy is "fair". He notes that his appetite is normal. He describes his concentration is "fair". He notes that he feels helpless, hopeless and worthless. He has been having bouts of crying and guilt and shame. He denies any ongoing suicidal or homicidal thoughts. He notes that his father has firearms at the house but keeps them locked." Hospital course: Upon admission to the unit patient was directable and agreeable to commence treatment and signed adult voluntary form. The patient got along well with other patients on the unit and followed unit protocol. Patient was compliant with the medications and denied any side effects throughout hospital course. Patient was started on home medications including Vraylar and Trazodone. The patient was started on Hydroxyzine 25 mg 4 times daily as needed and notes extreme positive effects from this handling his anxiety. Multiple times we tried to reach out to the however she never picked up the phone. The patient has spoken with the father and notes that he is welcome back home once he is discharged. Patient spoke of his stressors and engaged in therapy both group and individual. Patient was also seen by medical team for history and physical exam. Throughout the course of the hospitalization patient gradually improved with regards to mood, anxiety, sleep and returned back to their baseline level of functioning became more future oriented with improved insight and judgment. On the day of discharge patient denied any suicidal or homicidal ideations intent or plan denied any auditory or visual hallucinations. Patient endorsed wanting to live for their health and family. The patient denied any access to guns or weapons. Patient denied any paranoia and did not endorse any delusions. Patient does not have a significant history of substance abuse and was counseled on abstaining from all substances including alcohol and marijuana. Patient was also counseled on the medications and need for regular compliance and was encouraged to follow-up with their outpatient appointment for mental health and also for primary care. Prior to discharge a family meeting will be arranged by social media campaign manager to answer any questions and ensure safety upon discharge incuding making sure that guns/weapons are either removed from the home or locked away. Day of discharge patient was able to voice a safety plan including [phone] and [phone]. He denied any ongoing suicidal thoughts or homicidal thoughts. He noted that his depression was mild and his anxiety minimal. He denied any problems with sleep, energy and appetite. The patient notes that he would be staying with his father upon discharge. Mental status exam: General Appearance: Patient appears to be his stated age is alert, pleasant, and cooperative. Patient is in no acute distress and has improved hygiene and grooming Behavior: Patient is calmly seated without any agitated behavior. Speech: Patient's speech is fluent and nonpressured. Mood/Affect: Patient reports their mood is "better good", affect is congruent and euthymic. Suicidality/Homicidality: Patient denies having any suicidal or homicidal ideation intent or plan. Perceptions: Patient denies any auditory or visual hallucinations. Though content/process: There is no evidence of any delusional thought content and thought process is linear and goal-directed. More future oriented Memory and concentration: AOX3, grossly intact for the purposes of this session. Can spell "WORLD" backwards correctly. Judgment and insight: Chronically poor, however has improved with guarded prognosis Diagnosis: Schizoaffective disorder bipolar type Unspecified anxiety disorder R/O Borderline personality Cannabis use disorder Plan: -Continue with discharge today as patient has improved and stabilized psychiatrically and is not currently an imminent threat to themself and/or others. Patient will remain at chronically elevated risk for harm to self and/or others due to their impulsivity and substance abuse. -Continue medications: Vraylar 1.5 mg take 1 tablet by mouth once daily for mood/psychosis Hydroxyzine 25 mg 4 times daily as needed for anxiety Trazodone 50 mg take 1 tablet by mouth at bedtime as needed for insomnia -Patient was counseled on the need for medication compliance and appropriate follow-up at mental health and also primary care for medical issues. Patient verbalized understanding and agreed. -Social work to help coordinate patients discharge today arrange for and conduct family meeting to ensure safety upon discharge and answer any questions/concerns. also to ensure safe home environment that guns/weapons are either removed from the home or locked away. Social work also to arrange for patients follow up appointments with [facility] for psychiatric care along with follow up with primary care provider. -Patient counseled on abstaining from recreational drugs and marijuana and alcohol. Was informed/educated on the adverse effects on their physical and mental health. Patient verbally agreed and understood. -Patient was instructed to return to the hospital or seek immediate medical care if their psychiatric or medical symptoms do worsen or reoccur. Expected date of discharge: 04/08/25 Attending physician: Tiffani Gomes MD Consults: 04/03/25 21:40 Consult Physician Routine Consulting Provider: [facility] Consult Reason/Comments: History and Physical, New Admission Do you want consulting provider notified?: Yes Primary care physician: Stated None - Discharge Diagnosis(es) (1) Adjustment disorder with depressed mood Current Visit: No Status: Resolved Priority: High (2) Depression Current Visit: No Status: Chronic Priority: Medium (3) Schizophrenia Current Visit: No Status: Chronic Priority: Low Plan - Discharge Summary Discharge Rx Participant: No New Discharge Prescriptions: No Action Cariprazine HCl [Vraylar] 1.5 mg PO DAILY Levomefolate Calcium [l-Methylfolate Calcium] 15 mg PO DAILY Discharge Medication List Cariprazine HCl [Vraylar] 1.5 mg PO DAILY 04/03/25 [History] Levomefolate Calcium [l-Methylfolate Calcium] 15 mg PO DAILY 04/03/25 [History] Follow up Appointment(s)/Referral(s): [facility] [Outside] - 04/10/25 12:00 pm (04/15/25 at 9am with OSCAR DENISE ) None,Stated [Primary Care Provider] - 1-2 days Activity/Diet/Wound Care/Special Instructions: [facility] Discharge Info Avoid the use of street drugs and alcohol. Take all medications as prescribed. When you are in need of refills on your medications, please contact your outpatient medical provider and/or outpatient psychiatrist. Please go to your scheduled outpatient appointments for aftercare treatment. If symptoms return or become worse, call the crisis line at or and/or visit the nearest emergency room for assistance. National Suicide and Crisis Lifeline - call or text 988.
== END 2025-04-08 13:34 | disposition home or self-care (01) | DRG 761 ==
LOC: EC 15:45 → 3MHU 21:30
PROVIDERS: ADMIT Psychiatry & Neurology Psychiatry; ATTEND Psychiatry & Neurology Psychiatry
DX: F25.0 Schizoaffective disorder, bipolar type (principal); F41.9 Anxiety disorder, unspecified; F43.21 Adjustment disorder with depressed mood; R45.851 Suicidal ideations; F12.23 Cannabis dependence with withdrawal; F13.21 Sedative, hypnotic or anxiolytic dependence, in remission; Z56.0 Unemployment, unspecified; Z62.810 Personal history of physical and sexual abuse in childhood; Z63.9 Problem related to primary support group, unspecified; Z79.899 Other long term (current) drug therapy; Z59.9 Problem related to housing and economic circumstances, unspecified; Z28.310 Unvaccinated for COVID-19; Z71.51 Drug abuse counseling and surveillance of drug abuser
CPT/HCPCS: 80053; 80061; 80306; 83036; 84443; 85025; 87635; 99285